=== PATIENT | female | born 1955 | race Caucasian/White ===

== ENCOUNTER 2016-07-01 07:41 | Emergency (ER) | payer OTHER ==
--- NOTE | 2016-07-01 11:06 | ED ORDER SUMMARY ---
..... Patient: STEF POWERS OrderSheet [facility] VisitID: [id number] [place] [address] 61y, F Registration Date/Time: 07/01/2016 ORDER SHEET Weight: 52.1 kg (stated) Allergies: No Known Drug Allergy GENERAL ORDERS: CBC w Diff Urgent (08:07/01/2016 JSanders R.N. per protocol) (8:18 JSanders R.N.) CMP Urgent (08:07/01/2016 JSanders R.N. per protocol) (8:18 JSanders R.N.) Amylase Urgent (:07/01/2016 Jane SALGADO) (Ack 9:07 KHoerner) (9:16 JBoardley R.N.) Lipase Urgent (:07/01/2016 Jane SALGADO) (Ack 9:07 KHoerner) (9:16 JBoardley R.N.) UA-Culture if indicated Urgent (:07/01/2016 Jane SALGADO) (Ack 9:07 KHoerner) (10:07 KHoerner) Vitals - Orthostatic (:07/01/2016 Jane SALGADO) (9:16 JBoardley R.N.) TSH Urgent (10:07/01/2016 Jane SALGADO) (10:26 KHoerner) EKG - ER Stat (10:37 07/01/2016 Jane SALGADO) (10:51 PWeiler ER Tech1) MEDICATION ORDERS: IV FLUIDS: IV Saline Lock (08:07/01/2016 JSanders R.N. per protocol) (8:18 JSanders R.N.) Ondansetron IV 4 mg (NOW) (:07/01/2016 JSanders R.N. per protocol) (8:30 JSanders R.N.) IV NS : initial bolus 1000 mL (1000 mL/hr), then 125 mL/hr for 4h (NOW); Urgent (09:07/01/2016 Jane SALGADO) (9:40 JSanders R.N.) ORDER SHEET NOTES: [Electronically signed by Kandace Aquino R.N. (11:07/01/2016)] [Electronically signed by Jagdeep Lord MD (11:39 07/01/2016)] [Electronically locked/signed by Kandace Aquino R.N. (11:07/01/2016)]
--- NOTE | 2016-07-01 11:06 | ED NURSING NOTES ---
Clinical Report - Nurses [facility] [place] [address] 07/01/2016 7:47 [id number] Triage time 07:58 Jul 01 2016. Acuity: LEVEL 4. Chief Complaint: NAUSEA and VOMITING. 08:02 07/01/16. SEPSIS SCREEN: Sepsis Screen. Negative (no infection suspected/documented). FRANCINE COMA SCORE: [place] Coma Scale: 15- eyes open spontaneously (4); best verbal response- oriented x 4 (5); best motor response- obeys commands (6). --08:02 Kandace Aquino R.N. 07:58 07/01/16. BP: 189/98 (regular adult cuff) taken on the left arm, while sitting. HR: 76. RR: 18. O2 saturation: 96% on room air. Temp: 98.3 F (oral). Pain level now: 0/10. --08:02 Kandace Aquino R.N. Weight: 52.1 kg stated. Height/Length: 61 inches Per Patient. BMI: 21.7. --08:01 Kandace Aquino R.N. Medications Lisinopril Oral (Tablet 40 mg) 1 tablet, daily. --08:00 Kandace Aquino R.N. Lipitor Oral (Tablet 40 mg) 1 tablet, daily. --08:00 Kandace Aquino R.N. Allergies No Known Drug Allergy. --08:00 Kandace Aquino R.N. History Historian: patient and family. Primary physician (MARTY RODRIGUEZ). Onset. (Thursday). She has had nausea and vomiting. Treatment MACHINE SHOP SUPERVISOR: None. PAST MEDICAL HX: The patient is post-menopausal. Has had a tubal ligation. SOCIAL HX: Smoker- current status unknown. No alcohol use or drug use. No recent travel. No infectious disease exposure. No known contact with a sick individual. ABUSE ASSESSMENT: No report of abuse. --08:02 Kandace Aquino R.N. ( Patient has been dizzy for the past several days with nausea and vomiting). --08:05 Kandace Aquino R.N. PROBLEMS: Hypertension. Hypercholesterolemia. --08:01 Kandace Aquino R.N. ADDITIONAL SURGERIES: Tubal Ligation. --08:01 Kandace Aquino R.N. Interventions ID band on patient. To treatment room. --08:02 Kandace Aquino R.N. PHYSICAL ASSESSMENT 08:04 07/01/16. To room via wheelchair. GENERAL / NEURO / PSYCH: Alert. Oriented X 4. Appears in pain. HEENT: Mucous membranes are pink. RESPIRATORY: Respirations not labored. Breath sounds within normal limits. CVS: Capillary refill less than 2 seconds. GI / : The patient has had nausea. Emesis noted. Has vomited several times. Abdomen soft and nontender. Bowel sounds within normal limits. SKIN: Skin is warm. --08:04 Kandace Aquino R.N. NURSING PROGRESS NOTES The plan of care for this patient has been created. Monitoring of patient in place. Patient gowned. Head of bed elevated. Reassurance given. Two patient identifiers checked. Call light placed in reach. Side rails up x 2. Bed placed in lowest position. Brakes of bed on. Patient ready for evaluation- chart flagged and ED physician notified. --08:05 Kandace Aquino R.N. 08:18 07/01/2016 Site #1 started via IV in the left antecubital space with an 20g angiocath, with aseptic technique and good blood return; one attempt. Blood drawn: rainbow set. Labeled in the presence of the patient and sent to the lab. Saline lock flushed with 10 mL saline. --08:18 Kandace Aquino R.N. 08:30 07/01/2016 Ondansetron (Ondansetron HCl) IVP 4 mg given over 1 minute(s) via site #1. Allergies verified and confirmed 5 rights. IV patency established. IV site checked: no pain, redness, or swelling. IV flushed thoroughly pre- and post-medication administration. IVP given by RN. --08:30 Kandace Aquino R.N. 08:30 07/01/16. BP: 149/71 (regular adult cuff) taken on the right arm, while sitting. HR: 66. RR: 16 (regular). O2 saturation: 100% on room air. Pain level now: 010. --08:31 Kandace Aquino R.N. 08:53 07/01/2016 Ondansetron IVP Response: pain is gone now. Symptoms have improved the patient feels better. --08:53 Kandace Aquino R.N. ( Daughter sitting at bedside). --08:54 Kandace Aquino R.N. 08:53 07/01/16. BP: 132/67 (regular adult cuff) taken on the right arm, while lying. HR: 62. RR: 16 (regular). O2 saturation: 99% on room air. Pain level now: 010. --08:54 Kandace Aquino R.N. 09:17 07/01/16. BP: 127/67 taken while lying. ED physician notified. HR: 66. --09:19 Shahla Briggs ER Tech1 09:19 07/01/16. BP: 146/77 taken while sitting. HR: 61. --09:20 Shahla Briggs, ER Tech1 09:20 07/01/16. BP: 136/73 taken while standing. ED physician notified. HR: 74. --09:20 Shahla Briggs, ER Tech1 09:40 07/01/2016 Started bag #1 1000 mL IV Fluids IV NS (Saline); bolus of 1000 mL over 1 hour(s) then at 1000 mL/hr over 1 hour(s) via site #1 via dial-a-flow. Allergies verified and confirmed 5 rights. IV patency established. IV site checked: no pain, redness, or swelling. IV flushed thoroughly pre- and post-medication administration. --09:40 Kandace Aquino R.N. 09:40 07/01/16. BP: 137/72 (regular adult cuff) taken on the right arm, while lying. HR: 60. RR: 16. O2 saturation: 100% on room air. Pain level now: 010. --09:41 Kandace Aquino R.N. 10:19 07/01/16. BP: 131/71 (regular adult cuff) taken on the right arm, while lying. HR: 64. RR: 16. O2 saturation: 100% on room air. Pain level now: 010. --10:20 Kandace Aquino R.N. EKG time: (1049). EKG was ordered, performed by a tech and shown to the ED physician. --10:51 Manuel Cuellar ER Tech1 11:10 07/01/16. BP: 137/67. HR: 62. RR: 16. O2 saturation: 100% on room air. Pain level now: 010. --11:21 Kandace Aquino R.N. 11:30 07/01/2016 IV Saline Lock Drip IV Discontinued: bag #1 completed upon discharge. Total amount infused: 1000 mL. IV patency established. IV site checked: no pain, redness, or swelling. IV flushed thoroughly. --11:30 Kandace Aquino R.N. DISPOSITION / DISCHARGE 11:07/01/2016 Site #1 removed upon discharge. Bandaid applied. --11:29 Kandace Aquino R.N. 11:29 07/01/16. Condition at departure: improved. No learning barriers present. Discharge instructions provided and reviewed with the patient. Reviewed warnings (not to drink too much water). Reviewed medication(s) side effects, precautions and dosing information. Prescription(s) given to the patient. Patient and family verbalized understanding. Written instructions provided in Greenlandic. The patient was discharged by the physician. She was discharged home and accompanied by family. She left the Emergency Department ambulatory and via private vehicle. Family member driving. --11:29 Kandace Aquino R.N. 11:20 07/01/16. BP: 157/71 (regular adult cuff) taken on the right arm, while sitting. HR: 72. RR: 16. O2 saturation: 100% on room air. Temp: 98.2 F (oral). Pain level now: 0/10. --11:29 Kandace Aquino R.N. Departure time: 11:Jul 01 2016. --11:29 Kandace Aquino R.N. Locked/Released at 07/01/2016 11:30 by Kandace Aquino R.N.
--- NOTE | 2016-07-01 11:06 | ED ORDER SUMMARY ---
..... Patient: STEF POWERS OrderSheet [facility] VisitID: [id number] [place] [address] 61y, F Registration Date/Time: 07/01/2016 ORDER SHEET Weight: 52.1 kg (stated) Allergies: No Known Drug Allergy GENERAL ORDERS: CBC w Diff Urgent (08:07/01/2016 JSanders R.N. per protocol) (8:18 JSanders R.N.) CMP Urgent (08:07/01/2016 JSanders R.N. per protocol) (8:18 JSanders R.N.) Amylase Urgent (:07/01/2016 Jane SALGADO) (Ack 9:07 KHoerner) (9:16 JBoardley R.N.) Lipase Urgent (:07/01/2016 Jane SALGADO) (Ack 9:07 KHoerner) (9:16 JBoardley R.N.) UA-Culture if indicated Urgent (:07/01/2016 Jnae SALGADO) (Ack 9:07 KHoerner) (10:07 KHoerner) Vitals - Orthostatic (:07/01/2016 Jane SALGADO) (9:16 JBoardley R.N.) TSH Urgent (10:07/01/2016 Jane SALGADO) (10:26 KHoerner) EKG - ER Stat (10:37 07/01/2016 Jane SALGADO) (10:51 PWeiler ER Tech1) MEDICATION ORDERS: IV FLUIDS: IV Saline Lock (08:07/01/2016 JSanders R.N. per protocol) (8:18 JSanders R.N.) Ondansetron IV 4 mg (NOW) (:07/01/2016 JSanders R.N. per protocol) (8:30 JSanders R.N.) IV NS : initial bolus 1000 mL (1000 mL/hr), then 125 mL/hr for 4h (NOW); Urgent (09:07/01/2016 Jane SALGADO) (9:40 JSanders R.N.) ORDER SHEET NOTES: [Electronically signed by Kandace Aquino R.N. (11:07/01/2016)] [Electronically signed by Jagdeep Lord MD (11:39 07/01/2016)] [Electronically locked/signed by Kandace Aquino R.N. (11:07/01/2016)]
--- NOTE | 2016-07-01 11:06 | ED CLINICAL REPORT ---
Clinical Report - Physicians/Mid Levels [facility] [address] [place] [address] 07/01/2016 7:47 Patient: STEF POWERS Time Seen: 09:00. Arrived- By private vehicle. Historian- patient. HISTORY OF PRESENT ILLNESS Chief Complaint: DIZZINESS. This started 2 days ago and is still present. It was abrupt in onset and has been intermittent and waxing/waning. Described as sense of falling and feeling off balance, light-headed and weak all over. The patient has had nausea. She has had vomiting. The vomiting has occurred several times. No blood-tinged emesis or coffee-grounds emesis. No hearing loss, tinnitus or ear pain. Recent medical care: The patient was seen recently at another facility in a clinic. Seen for similar symptoms. Evaluation/treatment: medication prescribed. Diagnosis: (unknown). REVIEW OF SYSTEMS The patient has had chills. No fever, sweats, calf pain, chest pain or cough. No difficulty breathing, pedal edema, abdominal pain, black stools or bloody stools. No constipation or diarrhea. The patient has had palpitations ("when I'm nervous"). All systems otherwise negative, except as recorded above. PAST HISTORY ( PCP - Ck). Problems: Hypertension. Hypercholesterolemia. Additional Surgeries: Tubal Ligation. Medications: Lipitor Oral (Tablet 40 mg) 1 tablet, daily. Lisinopril Oral (Tablet 40 mg) 1 tablet, daily. Allergies: No Known Drug Allergy. SOCIAL HISTORY Smoker- current status unknown. No alcohol use or drug use. Residence: [place] she lives with a family member. Has good social support. FAMILY HISTORY Stroke in first-degree relative (mother). ADDITIONAL NOTES The nursing notes have been reviewed. PHYSICAL EXAM Vital Signs: 07/01/2016 07:58 BP: 189/98. HR: 76. RR: 18. O2 saturation: 96%. Temp: 98.3 F. Pain level now: 0/10. Have been reviewed. Appearance: Alert. Eyes: Pupils equal, round and reactive to light. No nystagmus. ENT: Normal ENT inspection. Moist mucous membranes. Pharynx normal. Neck: Normal inspection. Neck supple. CVS: Normal heart rate and rhythm. Heart sounds normal. Respiratory: No respiratory distress. Breath sounds normal. Abdomen: Soft and nontender. No organomegaly. Back: Normal inspection. Skin: Skin warm and dry. Normal skin color. Normal skin turgor. Extremities: Extremities exhibit normal ROM. No lower extremity edema. Neuro: Alert. Mood/affect normal. Speech normal. Cranial nerves normal (as tested). No cerebellar findings. No motor deficit. No weakness. No sensory deficit. Reflexes normal. No pronator drift. LABS, X-RAYS, AND EKG EKG: No acute process. Rate: 73. Non-specific ST segment / T wave abnormalities. Prior EKG unavailable. The study has been independently viewed by me. Laboratory Tests: UA-Culture if indicated: (YANELI: 07/01/2016 10:05) ( [facility] 07/01/2016 10:40) Final results Test Result Flag Units (Reference) URINE COLOR YELLOW URINE APPEARANCE CLEAR URINE GLUCOSE NEGATIVE (NEGATIVE) URINE BILIRUBIN NEGATIVE (NEGATIVE) URINE KETONE TRACE (NEGATIVE) URINE SPECIFIC GRAVITY <= 1.005 L (1.010-1.030) URINE PH 6.0 (5.0-8.0) URINE PROTEIN NEGATIVE (NEGATIVE) URINE UROBILINOGEN 0.2 EU/dL (0.2-1.0) URINE NITRITE NEGATIVE (NEGATIVE) URINE BLOOD NEGATIVE (NEGATIVE) URINE LEUK ESTERASE NEGATIVE (NEGATIVE) URINE RBC NONE SEEN rbc/hpf (0-1) URINE WBC NONE SEEN wbc/hpf (0-1) URINE EPITHELIAL CELLS 1-3 EPI/hpf (0-5) URINE BACTERIA NONE SEEN (NONE SEEN) URINE COMMENT CULT NOT INDICATED URINE CULTURES ARE SET-UP BASED ON THE FOLLOWING CRITERIA:POSITIVE NITRITEPOSITIVE LEUKOCYTE ESTERASEGREATER THAN 10 WHITE BLOOD CELLSMODERATE (2+) OR GREATER BACTERIA CBC w Diff: (YANELI: 07/01/2016 08:20) ( [facility] 07/01/2016 08:27) Final results Test Result Flag Units (Reference) WHITE BLOOD COUNT 3.7 L K/uL (4.5-11.5) RED BLOOD COUNT 4.34 M/uL (4.00-5.20) HEMOGLOBIN 13.2 gm/dL (12.0-16.0) HEMATOCRIT 38.1 % (36.0-46.0) MEAN CELL VOLUME 88 fL (80-100) MEAN CORPUSCULAR HGB 31 pg (26-34) MEAN CORPUSCULAR HGB CONC 35 g/dL (31-37) RED CELL DISTRIBUTION WIDTH 12.1 % (11.6-14.8) PLATELET COUNT 122 L K/uL (150-400) NEUTROPHIL % 73.0 % (50-75) LYMPH % 18.0 L % (25-40) MONO % 7.4 % (3-14) EOSINOPHIL % 0.9 % (0-4) BASOPHIL % 0.7 % (0-2) Lipase: (YANELI: 07/01/2016 08:20) ( [facility] 07/01/2016 09:17) Final results Test Result Flag Units (Reference) LIPASE 112 U/L (73-393) AMYLASE 41 U/L (25-115) CMP: (YANELI: 07/01/2016 08:20) ( MsgRcvd 07/01/2016 08:49) Final results Test Result Flag Units (Reference) GLUCOSE 170 H mg/dL (70-110) BUN 12 mg/dL (7-18) CREATININE 0.6 mg/dL (0.6-1.3) Estimated GFR >60 mL/min Estimated GFR- >60 mL/min Note: Persistent reduction over 3 months in eGFR<60 mL/min/1.73 m2 defines CKD. Patients with eGFR values>=60 mL/min/1.73 m2 may also have CKD if evidence ofpersistent proteinuria. Additional information may be foundat www.kidney.org. SODIUM 128 L mmol/L (136-145) POTASSIUM 3.5 mmol/L (3.5-5.1) CHLORIDE 92 L mmol/L (98-107) CARBON DIOXIDE 28 mmol/L (21-32) CALCIUM 9.5 mg/dL (8.5-10.1) TOTAL PROTEIN 7.2 g/dL (6.4-8.2) ALBUMIN 3.9 g/dL (3.3-5.0) BILIRUBIN, TOTAL 0.9 mg/dL (0.0-1.0) ALKALINE PHOSPHATASE 62 U/L (46-116) AST (SGOT) 20 U/L (15-37) ALT (SGPT) 36 U/L (12-78) . PROGRESS AND PROCEDURES Course of Care: Patient is stable. Patient/family counseled. Old medical records ordered. Old records unavailable. Disposition: Discharged. Condition: stable. CLINICAL IMPRESSION Dizziness Hyponatremia (leukopenia). INSTRUCTIONS No driving or operating machinery while taking medication. Drink plenty of fluids. Warnings: Further evaluation is necessary. GENERAL WARNINGS: Return or contact your physician immediately if your condition worsens or changes unexpectedly, if not improving as expected, or if other problems arise. Your Current Medications: CONTINUE TAKING THE FOLLOWING MEDICATIONS: Lipitor Oral : Tablet 40 mg, 1 tablet daily. Lisinopril Oral : Tablet 40 mg, 1 tablet daily. Prescription Medications: Zofran 4 mg: Take 1 orally every six hours as needed for nausea/vomiting. Dispense ten (10). No refills. Substitution is permissible. Antivert 25mg: Take 1 tablet orally every 8 hours as needed for dizziness. Dispense thirty (30). No refills. Substitution is permissible. Follow-up: Follow up with your doctor MARTY RODRIGUEZ in three days. Call for the next available appointment. Follow up with a transmission builder- as recommended by your primary care physician- Astro Technician. Understanding of the discharge instructions verbalized by patient and family. (Electronically signed by Jagdeep Lord MD 07/01/2016 11:39)
--- NOTE | 2016-07-01 11:40 | ED DISCHARGE INSTRUCTIONS ---
Patient: STEF POWERS General Instructions [facility] VisitID: [id number] [place] [address] 61y, F Registration Date/Time: 07/01/2016 Dizziness Hyponatremia (leukopenia). INSTRUCTIONS No driving or operating machinery while taking medication. Drink plenty of fluids. Warnings: Further evaluation is necessary. GENERAL WARNINGS: Return or contact your physician immediately if your condition worsens or changes unexpectedly, if not improving as expected, or if other problems arise. Your Current Medications: CONTINUE TAKING THE FOLLOWING MEDICATIONS: Lipitor Oral : Tablet 40 mg, 1 tablet daily. Lisinopril Oral : Tablet 40 mg, 1 tablet daily. Prescription Medications: Zofran 4 mg: Take 1 orally every six hours as needed for nausea/vomiting. Dispense ten (10). No refills. Substitution is permissible. Antivert 25mg: Take 1 tablet orally every 8 hours as needed for dizziness. Dispense thirty (30). No refills. Substitution is permissible. Follow-up: Follow up with your doctor MARTY RODRIGUEZ in three days. Call for the next available appointment. Follow up with a rn staff- as recommended by your primary care physician- Caster Operator. Understanding of the discharge instructions verbalized by patient and family. ADDITIONAL INFORMATION Benign Positional Vertigo The inner ear is located behind the middle ear. It is a part of the balance center of the body. It contains small calcium particles within fluid filled canals (semi-circular canals). These particles can move out of position as a result of aging, head trauma or disease of the inner ear. Once that happens, movement of the head into certain positions may cause the particles to stimulate the inner ear and create the feeling of vertigo. Vertigo is a false feeling of motion (as if you or the room is spinning). A vertigo attack may cause sudden nausea, vomiting and heavy sweating. Severe vertigo causes a loss of balance and may result in falling. During an attack of vertigo, head movement and body position changes will worsen symptoms. An episode of vertigo may last seconds, minutes or hours. Once you are over the first episode of vertigo, it may never return. Sometimes symptoms recur off and on over several weeks or longer. Home Care: If symptoms are severe, rest quietly in bed. Change positions slowly. There is usually one position that will feel best, such as lying on one side or lying on your back with your head slightly raised on pillows. Do not drive or work with dangerous machinery for one week after symptoms disappear, in case of a sudden return of symptoms. Take medicine as prescribed to relieve your symptoms. Unless another medicine was prescribed for nausea, vomiting and vertigo, you may use anes-rqi-rfaiodg motion sickness pills, such as meclizine (Bonine, Bonamine, Antivert) or dimenhydrinate (Dramamine). Follow Up with your doctor or as directed by our staff. Report any persistent ringing in the ear or hearing loss to your doctor. [NOTE: If you had a CT or MRI scan, it will be reviewed by a specialist. You will be notified of any new findings that may affect your care.] Get Prompt Medical Attention if any of the following occur: Worsening of vertigo not controlled by the medicine prescribed Repeated vomiting not controlled by the medicine prescribed Increased weakness or fainting Severe headache or unusual drowsiness or confusion Weakness of an arm or leg or one side of the face Difficulty with speech or vision Seizure Hyponatremia Hyponatremia means low sodium levels in the blood. This condition most often occurs after prolonged vomiting or diarrhea. It can also result from the use of diuretics (water pills) or drinking excess amounts of water. Mild hyponatremia causes no symptoms. It is only discovered with a blood test. As sodium levels in the blood decreases, symptoms begin to appear. This includes weakness, confusion, muscle cramping and seizures. Home Care: 1) Reduce your daily water intake until the problem is corrected. 2) If you have been taking diuretics, you may be asked to stop taking them for a short time. 3) If you are having symptoms of weakness or confusion, do not drive or operate dangerous machinery until symptoms resolve. Follow Up with your doctor for a repeat blood test within the next week unless told otherwise. Get Prompt Medical Attention if any of the following occur: -- Increasing weakness -- Dizziness -- Irregular heartbeat, extra beats or very fast heart rate -- Fainting spell Ondansetron Oral disintegrating tablet What is this medicine? ONDANSETRON (on CANDIDO se wm) is used to treat nausea and vomiting caused by chemotherapy. It is also used to prevent or treat nausea and vomiting after surgery. How should I use this medicine? These tablets are made to dissolve in the mouth. Do not try to push the tablet through the foil backing. With dry hands, peel away the foil backing and gently remove the tablet. Place the tablet in the mouth and allow it to dissolve, then swallow. While you may take these tablets with water, it is not necessary to do so. Talk to your lamp inspector regarding the use of this medicine in children. Special care may be needed. What side effects may I notice from receiving this medicine? Side effects that you should report to your doctor or health adult live in caregiver as soon as possible: allergic reactions like skin rash, itching or hives, swelling of the face, lips, or tongue breathing problems dizziness fast or irregular heartbeat feeling faint or lightheaded, falls fever and chills swelling of the hands and feet tightness in the chest Side effects that usually do not require medical attention (report to your doctor or health adult live in caregiver if they continue or are bothersome): constipation or diarrhea headache What may interact with this medicine? Do not take this medicine with any of the following medications: -apomorphine -cisapride -dofetilide -dronedarone -pimozide -thioridazine -ziprasidone This medicine may also interact with the following medications: -carbamazepine -phenytoin -rifampicin -tramadol -other medicines that prolong the QT interval (cause an abnormal heart rhythm) What if I miss a dose? If you miss a dose, take it as soon as you can. If it is almost time for your next dose, take only that dose. Do not take double or extra doses. Where should I keep my medicine? Keep out of the reach of children. Store between 2 and 30 degrees C (36 and 86 degrees F). Throw away any unused medicine after the expiration date. What should I tell my health care provider before I take this medicine? They need to know if you have any of these conditions: heart disease history of irregular heartbeat liver disease low levels of magnesium or potassium in the blood an unusual or allergic reaction to ondansetron, granisetron, other medicines, foods, dyes, or preservatives or trying to get breast-feeding What should I watch for while using this medicine? Check with your doctor or health adult live in caregiver as soon as you can if you have any sign of an allergic reaction. Meclizine Hydrochloride Oral tablet What is this medicine? MECLIZINE (ALLYSSA desai) is an antihistamine. It is used to prevent nausea, vomiting, or dizziness caused by motion sickness. It is also used to prevent and treat vertigo (extreme dizziness or a feeling that you or your surroundings are tilting or spinning around). How should I use this medicine? Take this medicine by mouth with a glass of water. Follow the directions on the prescription label. If you are using this medicine to prevent motion sickness, take the dose at least 1 hour before travel. If it upsets your stomach, take it with food or milk. Take your doses at regular intervals. Do not take your medicine more often than directed. Talk to your lamp inspector regarding the use of this medicine in children. Special care may be needed. What side effects may I notice from receiving this medicine? Side effects that you should report to your doctor or health adult live in caregiver as soon as possible: fainting spells fast or irregular heartbeat Side effects that usually do not require medical attention (report to your doctor or health adult live in caregiver if they continue or are bothersome): constipation difficulty passing urine difficulty sleeping headache stomach upset What may interact with this medicine? barbiturate medicines for inducing sleep or treating seizures digoxin medicines for anxiety or sleeping problems, like alprazolam, diazepam or temazepam medicines for hay fever and other allergies medicines for mental depression medicines for movement abnormalities as in Parkinson's disease, or for stomach problems medicines for pain medicines that relax muscles What if I miss a dose? If you miss a dose, take it as soon as you can. If it is almost time for your next dose, take only that dose. Do not take double or extra doses. Where should I keep my medicine? Keep out of the reach of children. Store at room temperature between 15 and 30 degrees C (59 and 86 degrees F). Keep container tightly closed. Throw away any unused medicine after the expiration date. What should I tell my health care provider before I take this medicine? They need to know if you have any of these conditions: asthma glaucoma prostate trouble stomach problems urinary problems an unusual or allergic reaction to meclizine, other medicines, foods, dyes, or preservatives or trying to get breast-feeding What should I watch for while using this medicine? If you are taking this medicine on a regular schedule, visit your doctor or health adult live in caregiver for regular checks on your progress. You may get dizzy, drowsy or have blurred vision. Do not drive, use machinery, or do anything that needs mental alertness until you know how this medicine affects you. Do not stand or sit up quickly, especially if you are an older patient. This reduces the risk of dizzy or fainting spells. Alcohol can increase possible dizziness. Avoid alcoholic drinks. Your mouth may get dry. Chewing sugarless gum or sucking hard candy, and drinking plenty of water may help. Contact your doctor if the problem does not go away or is severe. This medicine may cause dry eyes and blurred vision. If you wear contact lenses you may feel some discomfort. Lubricating drops may help. See your eye doctor if the problem does not go away or is severe. You have been given the following additional information: Benign Positional Vertigo Hyponatremia Ondansetron Oral disintegrating tablet Meclizine Hydrochloride Oral tablet No driving or operating machinery while taking medication. (Electronically signed by Jagdeep Lord MD 07/01/2016 11:39)
--- NOTE | 2016-07-01 11:40 | ED MAR SUMMARY ---
..... Medication Administration Record [facility] [address] [place] [address] Patient: STEF POWERS Visit ID: [id number] 61y, F Weight: 52.1 kg Height/Length: 61 in BMI: 21.7 ALLERGIES: No Known Drug Allergy Given 08:30 07/01/2016 Kandace Aquino R.N. Medication Administered: ONDANSETRON [IVP] (ONDANSETRON HCL), Dose: 4 mg IVP over 1 minute(s), Site: #1 left AC. Medication Ordered: Ondansetron IV 4 mg (NOW). Start 09:40 07/01/2016 Kandace Aquino R.N. Medication Administered: IV NS (SALINE), Dose: IV Fluids over 1 hour(s), Rate: 1000 mL/hr, Bolus: 1000 mL over 1 hour(s), Dispensed: 1000 mL bag, Site: #1 left AC. Medication Ordered: IV NS : initial bolus 1000 mL (1000 mL/hr), then 125 mL/hr for 4h (NOW); Urgent.
--- NOTE | 2016-07-01 11:40 | ED MED RECONCILIATION SUMMARY ---
Patient: STEF POWERS Medication Reconciliation Report [facility] VisitID: [id number] [address] [place] [address] 61y, F Registration Date/Time: 07/01/2016 Weight: 52.1 kg Height/Length: 61 in. BMI: 21.7 ALLERGIES: No Known Drug Allergy The patient's Home Medications are listed below: CONTINUE TAKING THE FOLLOWING MEDICATIONS: Lipitor Oral (40 mg) 1 tablet, daily Lisinopril Oral (40 mg) 1 tablet, daily The source(s) of the original Home Medication information: Not obtained. The following Medications were given to the patient in the Emergency Department: Ondansetron [IVP] IVP 4 mg, administered: 07/01/2016 8:30:00 AM IV NS IV Fluids bolus 1000 mL over 1 hour(s), then 1000 mL/hr, administered: 07/01/2016 9:40:00 AM The following Medications were prescribed to the patient: Zofran 4 mg: Take 1 orally every six hours as needed for nausea/vomiting. Dispense ten (10). No refills. Substitution is permissible. -- Jagdeep Lord MD Antivert 25mg: Take 1 tablet orally every 8 hours as needed for dizziness. Dispense thirty (30). No refills. Substitution is permissible. -- Jagdeep Lord MD
--- NOTE | 2016-07-01 11:40 | ED MED RECONCILIATION SUMMARY ---
Patient: STEF POWERS Medication Reconciliation Report [facility] VisitID: [id number] [address] [place] [address] 61y, F Registration Date/Time: 07/01/2016 Weight: 52.1 kg Height/Length: 61 in. BMI: 21.7 ALLERGIES: No Known Drug Allergy The patient's Home Medications are listed below: CONTINUE TAKING THE FOLLOWING MEDICATIONS: Lipitor Oral (40 mg) 1 tablet, daily Lisinopril Oral (40 mg) 1 tablet, daily The source(s) of the original Home Medication information: Not obtained. The following Medications were given to the patient in the Emergency Department: Ondansetron [IVP] IVP 4 mg, administered: 07/01/2016 8:30:00 AM IV NS IV Fluids bolus 1000 mL over 1 hour(s), then 1000 mL/hr, administered: 07/01/2016 9:40:00 AM The following Medications were prescribed to the patient: Zofran 4 mg: Take 1 orally every six hours as needed for nausea/vomiting. Dispense ten (10). No refills. Substitution is permissible. -- Jagdeep Lord MD Antivert 25mg: Take 1 tablet orally every 8 hours as needed for dizziness. Dispense thirty (30). No refills. Substitution is permissible. -- Jagdeep Lord MD
--- NOTE | 2016-07-01 11:40 | ED DISCHARGE INSTRUCTIONS ---
Patient: STEF POWERS General Instructions [facility] VisitID: [id number] [place] [address] 61y, F Registration Date/Time: 07/01/2016 Dizziness Hyponatremia (leukopenia). INSTRUCTIONS No driving or operating machinery while taking medication. Drink plenty of fluids. Warnings: Further evaluation is necessary. GENERAL WARNINGS: Return or contact your physician immediately if your condition worsens or changes unexpectedly, if not improving as expected, or if other problems arise. Your Current Medications: CONTINUE TAKING THE FOLLOWING MEDICATIONS: Lipitor Oral : Tablet 40 mg, 1 tablet daily. Lisinopril Oral : Tablet 40 mg, 1 tablet daily. Prescription Medications: Zofran 4 mg: Take 1 orally every six hours as needed for nausea/vomiting. Dispense ten (10). No refills. Substitution is permissible. Antivert 25mg: Take 1 tablet orally every 8 hours as needed for dizziness. Dispense thirty (30). No refills. Substitution is permissible. Follow-up: Follow up with your doctor MARTY RODRIGUEZ in three days. Call for the next available appointment. Follow up with a agricultural purchasing agent- as recommended by your primary care physician- [employer]. Understanding of the discharge instructions verbalized by patient and family. ADDITIONAL INFORMATION Benign Positional Vertigo The inner ear is located behind the middle ear. It is a part of the balance center of the body. It contains small calcium particles within fluid filled canals (semi-circular canals). These particles can move out of position as a result of aging, head trauma or disease of the inner ear. Once that happens, movement of the head into certain positions may cause the particles to stimulate the inner ear and create the feeling of vertigo. Vertigo is a false feeling of motion (as if you or the room is spinning). A vertigo attack may cause sudden nausea, vomiting and heavy sweating. Severe vertigo causes a loss of balance and may result in falling. During an attack of vertigo, head movement and body position changes will worsen symptoms. An episode of vertigo may last seconds, minutes or hours. Once you are over the first episode of vertigo, it may never return. Sometimes symptoms recur off and on over several weeks or longer. Home Care: If symptoms are severe, rest quietly in bed. Change positions slowly. There is usually one position that will feel best, such as lying on one side or lying on your back with your head slightly raised on pillows. Do not drive or work with dangerous machinery for one week after symptoms disappear, in case of a sudden return of symptoms. Take medicine as prescribed to relieve your symptoms. Unless another medicine was prescribed for nausea, vomiting and vertigo, you may use [id number] motion sickness pills, such as meclizine (Bonine, Bonamine, Antivert) or dimenhydrinate (Dramamine). Follow Up with your doctor or as directed by our staff. Report any persistent ringing in the ear or hearing loss to your doctor. [NOTE: If you had a CT or MRI scan, it will be reviewed by a specialist. You will be notified of any new findings that may affect your care.] Get Prompt Medical Attention if any of the following occur: Worsening of vertigo not controlled by the medicine prescribed Repeated vomiting not controlled by the medicine prescribed Increased weakness or fainting Severe headache or unusual drowsiness or confusion Weakness of an arm or leg or one side of the face Difficulty with speech or vision Seizure Hyponatremia Hyponatremia means low sodium levels in the blood. This condition most often occurs after prolonged vomiting or diarrhea. It can also result from the use of diuretics (water pills) or drinking excess amounts of water. Mild hyponatremia causes no symptoms. It is only discovered with a blood test. As sodium levels in the blood decreases, symptoms begin to appear. This includes weakness, confusion, muscle cramping and seizures. Home Care: 1) Reduce your daily water intake until the problem is corrected. 2) If you have been taking diuretics, you may be asked to stop taking them for a short time. 3) If you are having symptoms of weakness or confusion, do not drive or operate dangerous machinery until symptoms resolve. Follow Up with your doctor for a repeat blood test within the next week unless told otherwise. Get Prompt Medical Attention if any of the following occur: -- Increasing weakness -- Dizziness -- Irregular heartbeat, extra beats or very fast heart rate -- Fainting spell Ondansetron Oral disintegrating tablet What is this medicine? ONDANSETRON (on CANDIDO se wm) is used to treat nausea and vomiting caused by chemotherapy. It is also used to prevent or treat nausea and vomiting after surgery. How should I use this medicine? These tablets are made to dissolve in the mouth. Do not try to push the tablet through the foil backing. With dry hands, peel away the foil backing and gently remove the tablet. Place the tablet in the mouth and allow it to dissolve, then swallow. While you may take these tablets with water, it is not necessary to do so. Talk to your ironer regarding the use of this medicine in children. Special care may be needed. What side effects may I notice from receiving this medicine? Side effects that you should report to your doctor or health director of managed care as soon as possible: allergic reactions like skin rash, itching or hives, swelling of the face, lips, or tongue breathing problems dizziness fast or irregular heartbeat feeling faint or lightheaded, falls fever and chills swelling of the hands and feet tightness in the chest Side effects that usually do not require medical attention (report to your doctor or health director of managed care if they continue or are bothersome): constipation or diarrhea headache What may interact with this medicine? Do not take this medicine with any of the following medications: -apomorphine -cisapride -dofetilide -dronedarone -pimozide -thioridazine -ziprasidone This medicine may also interact with the following medications: -carbamazepine -phenytoin -rifampicin -tramadol -other medicines that prolong the QT interval (cause an abnormal heart rhythm) What if I miss a dose? If you miss a dose, take it as soon as you can. If it is almost time for your next dose, take only that dose. Do not take double or extra doses. Where should I keep my medicine? Keep out of the reach of children. Store between 2 and 30 degrees C (36 and 86 degrees F). Throw away any unused medicine after the expiration date. What should I tell my health care provider before I take this medicine? They need to know if you have any of these conditions: heart disease history of irregular heartbeat liver disease low levels of magnesium or potassium in the blood an unusual or allergic reaction to ondansetron, granisetron, other medicines, foods, dyes, or preservatives or trying to get breast-feeding What should I watch for while using this medicine? Check with your doctor or health director of managed care as soon as you can if you have any sign of an allergic reaction. Meclizine Hydrochloride Oral tablet What is this medicine? MECLIZINE (ALLYSSA desai) is an antihistamine. It is used to prevent nausea, vomiting, or dizziness caused by motion sickness. It is also used to prevent and treat vertigo (extreme dizziness or a feeling that you or your surroundings are tilting or spinning around). How should I use this medicine? Take this medicine by mouth with a glass of water. Follow the directions on the prescription label. If you are using this medicine to prevent motion sickness, take the dose at least 1 hour before travel. If it upsets your stomach, take it with food or milk. Take your doses at regular intervals. Do not take your medicine more often than directed. Talk to your ironer regarding the use of this medicine in children. Special care may be needed. What side effects may I notice from receiving this medicine? Side effects that you should report to your doctor or health director of managed care as soon as possible: fainting spells fast or irregular heartbeat Side effects that usually do not require medical attention (report to your doctor or health director of managed care if they continue or are bothersome): constipation difficulty passing urine difficulty sleeping headache stomach upset What may interact with this medicine? barbiturate medicines for inducing sleep or treating seizures digoxin medicines for anxiety or sleeping problems, like alprazolam, diazepam or temazepam medicines for hay fever and other allergies medicines for mental depression medicines for movement abnormalities as in Parkinson's disease, or for stomach problems medicines for pain medicines that relax muscles What if I miss a dose? If you miss a dose, take it as soon as you can. If it is almost time for your next dose, take only that dose. Do not take double or extra doses. Where should I keep my medicine? Keep out of the reach of children. Store at room temperature between 15 and 30 degrees C (59 and 86 degrees F). Keep container tightly closed. Throw away any unused medicine after the expiration date. What should I tell my health care provider before I take this medicine? They need to know if you have any of these conditions: asthma glaucoma prostate trouble stomach problems urinary problems an unusual or allergic reaction to meclizine, other medicines, foods, dyes, or preservatives or trying to get breast-feeding What should I watch for while using this medicine? If you are taking this medicine on a regular schedule, visit your doctor or health director of managed care for regular checks on your progress. You may get dizzy, drowsy or have blurred vision. Do not drive, use machinery, or do anything that needs mental alertness until you know how this medicine affects you. Do not stand or sit up quickly, especially if you are an older patient. This reduces the risk of dizzy or fainting spells. Alcohol can increase possible dizziness. Avoid alcoholic drinks. Your mouth may get dry. Chewing sugarless gum or sucking hard candy, and drinking plenty of water may help. Contact your doctor if the problem does not go away or is severe. This medicine may cause dry eyes and blurred vision. If you wear contact lenses you may feel some discomfort. Lubricating drops may help. See your eye doctor if the problem does not go away or is severe. You have been given the following additional information: Benign Positional Vertigo Hyponatremia Ondansetron Oral disintegrating tablet Meclizine Hydrochloride Oral tablet No driving or operating machinery while taking medication. (Electronically signed by Jagdeep Lord MD 07/01/2016 11:39)
--- NOTE | 2016-07-01 11:40 | ED MAR SUMMARY ---
..... Medication Administration Record [facility] [address] [place] [address] Patient: STEF POWERS Visit ID: [id number] 61y, F Weight: 52.1 kg Height/Length: 61 in BMI: 21.7 ALLERGIES: No Known Drug Allergy Given 08:30 07/01/2016 Kandace Aquino R.N. Medication Administered: ONDANSETRON [IVP] (ONDANSETRON HCL), Dose: 4 mg IVP over 1 minute(s), Site: #1 left AC. Medication Ordered: Ondansetron IV 4 mg (NOW). Start 09:40 07/01/2016 Kandace Aquino R.N. Medication Administered: IV NS (SALINE), Dose: IV Fluids over 1 hour(s), Rate: 1000 mL/hr, Bolus: 1000 mL over 1 hour(s), Dispensed: 1000 mL bag, Site: #1 left AC. Medication Ordered: IV NS : initial bolus 1000 mL (1000 mL/hr), then 125 mL/hr for 4h (NOW); Urgent.
== END 2016-07-01 11:30 | disposition home or self-care (01) ==
LOC: ED SRH 07:41
DX: R42 Dizziness and giddiness (principal); E87.1 Hypo-osmolality and hyponatremia; I10 Essential (primary) hypertension; Z79.899 Other long term (current) drug therapy
CPT/HCPCS: 90004; 90100; 92235; 92530; 93140; 95059